=== PATIENT | male | born 1995 | race Caucasian/White ===

== ENCOUNTER 2019-01-27 18:14 | Emergency (ER) | payer OTHER ==
[~2019-01-27] VITALS: Ht 180.3 cm; Wt 87.4 kg
--- NOTE | 2019-01-27 18:20 | NUR ---
EKG being performed in triage
--- NOTE | 2019-01-27 20:00 | NUR ---
PT. TO ROOM FROM LOBBY AT THIS TIME
--- NOTE | 2019-01-27 20:05 | NUR ---
PT TO ROOM FROM LOBBY, STATES THAT HE HAS HAD 3 EPISODES OF SHARP L SIDED CHEST PAIN LASTING LESS THAT ONE MINUTE OVER THE LAST 3 WEEKS, PAIN IS NON RADIATING, NO SOB, NO DIZZINESS, NO NAUSEA. NOTHING MAKES THE PAIN BETTER OR WORSE. PLEASANT YOUNG MAN WITH NO MEDICAL HISTORY
--- NOTE | 2019-01-27 20:07 | NUR ---
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
[2019-01-27 20:21] LABS: BASOPHILS # (AUTO) 0.02 x10^3/uL (0-0.1); BASOPHILS % (AUTO) 0 % (0-1); EOSINOPHILS # (AUTO) 0.13 x10^3/uL (0-0.4); EOSINOPHILS % (AUTO) 2 % (1-7); LYMPHOCYTES # (AUTO) 2.54 x10^3/uL (1-3.4); LYMPHOCYTES % (AUTO) 30 % (22-44); MD NO; MEAN CORPUSCULAR HEMOGLOBIN 30.1 pg (27.5-34.5); MEAN CORPUSCULAR HGB CONC 33.8 g/dL (33.2-36.2); MEAN CORPUSCULAR VOLUME 88.8 fL (81-97); MEAN PLATELET VOLUME 9.8 fL (7.4-10.4); MONOCYTES % (AUTO) 8 % (2-9); NEUTROPHILS # (AUTO) 5.17 x10^3/uL (1.8-6.8); NEUTROPHILS % (AUTO) 60 % (42-75); PLATELET COUNT 270 x10^3/uL (130-400); RED CELL DISTRIBUTION WIDTH 12.7 % (9.4-14.8)
[2019-01-27 20:31] LABS: ANION GAP 5 mmol/L (5-15); CALCIUM 8.6 mg/dL (8.5-10.1); CHLORIDE 107 mmol/L (98-107); CREATININE 0.93 mg/dL (0.7-1.3)
[2019-01-27 20:34] LABS: TROPONIN I < 0.015 ng/mL (0.000-0.045)
--- NOTE | 2019-01-27 20:39 | NUR ---
PT. RESTING ON GURNEY WITH FAMILY AT BS. NO DISTRESS NOTED. PT. DENIES NEEDS. ALL MONITORS IN PLACE. NSR NOTED ON MONITOR. CALL LIGHT IN REACH. ALL SAFETY MEASURES OBSERVED. AWIATING PROVIDER RECHECK/EVAL.
[2019-01-27 20:40] VITALS: BP 124/73
== END 2019-01-27 21:01 | disposition home or self-care (01) ==
LOC: ED 20:55
DX: R07.89 Other chest pain (principal)
CPT/HCPCS: 36415; 71046; 80048; 84484; 85025; 93005; 99284